=== PATIENT | male | born 1960 | race Caucasian/White ===

== ENCOUNTER 2016-11-20 13:48 | Outpatient (CLI) | payer MEDICARE, BC ==
[2014-09-03 07:51] VITALS: O2SAT 94
== END 2016-11-20 13:49 | disposition home or self-care (01) | DRG 561 ==
LOC: CONVCARE 13:48
PROVIDERS: ATTEND Orthopaedic Surgery
DX: Z47.1 Aftercare following joint replacement surgery (principal); Z96.642 Presence of left artificial hip joint
CPT/HCPCS: 73502

== ENCOUNTER 2017-03-11 12:37 | Day surgery (SDC) | payer MEDICARE, BC ==
[2017-03-11 13:11] VITALS: O2SAT 98
[2017-03-11] MEDS ORDERED: LIDOCAINE HCL 1% MPF SOL ONE (13:42)
[2017-03-11] MEDS ORDERED: BUPIVACAINE HCL 0.5% MPF 10 ML SOL ONE (13:42)
[2017-03-11] MEDS: TRIAMCINOLONE ACETONIDE 40 MG/ML SUS ONE ×4 (13:57→14:06)
[2017-03-11 14:18] VITALS: BP 152/100; PULSE 69; RESP 16; TEMP 96.8
== END 2017-03-11 14:47 | disposition home or self-care (01) | DRG 554 ==
LOC: SURG 12:37
PROVIDERS: ATTEND Nurse Anesthetist, Certified Registered
DX: M12.88 Other specific arthropathies, not elsewhere classified, other specified site (principal)
CPT/HCPCS: J2001; J3300